=== PATIENT | male | born 1985 | race Two or more races ===

== ENCOUNTER → 2021-09-27 | Day surgery (SDC) | payer OTHER ==
[~2021-09-27] MED LIST: 0.9 % SODIUM CHLORIDE 10 ML VIAL. ONE; BUPIVACAINE MPF 0.25% 10 ML VIAL. ONE; DEXAMETHASONE SOD PHOS 10 MG/ML VIAL. ONE; IOHEXOL 300 MG/ML 50 ML VIAL. ONE; LIDOCAINE 1% PF 30 ML VIAL. ONE
[2021-09-27 11:05] VITALS: BP 141/81
== END | disposition home or self-care (01) ==
LOC: SURG 10:20
PROVIDERS: ATTEND Anesthesiology
DX: M79.18 Myalgia, other site (principal); F32.9 Major depressive disorder, single episode, unspecified; M54.16 Radiculopathy, lumbar region
CPT/HCPCS: 20553; A4657; A4930; J3490; J1100; Q9967